=== PATIENT | female | born 1965 | race American Indian/Alaskan Native ===

== ENCOUNTER 2017-10-29 19:22 | Emergency (ER) | payer OTHER ==
[2017-10-29 19:39] VITALS: BP 116/78
[2017-10-29] MEDS ORDERED: ULTRAM PO ONE (20:33)
[2017-10-29 20:44] LABS: Hematocrit 37.4 % (30.3-42.9); Hemoglobin 12.4 gm/dl (10.1-14.3); Mean Corpuscular HGB Conc 33 % (30-34); Mean Corpuscular Hemoglobin 33 pg (28-32); Mean Corpuscular Volume 99 fl (79-97); Platelet Count 286 K/mm3 (140-440); Red Blood Count 3.77 M/mm3 (3.65-5.03); Red Cell Distribution Width 13.8 % (13.2-15.2)
--- NOTE | 2017-10-29 20:50 | Emergency Department Report ---
ED General Adult HPI - General Chief complaint: Neuro Symptoms/Deficit Stated complaint: PAIN LEFT ARM,FEET Time Seen by Provider: 10/29/17 20:32 Source: patient Mode of arrival: Ambulatory Limitations: No Limitations - History of Present Illness Initial comments: Patient is a 52-year-old Afro[place]Citizen [place] female history of htn and obesity who presents for left forearm pain and numbness bilateral foot numbness patient denies diabetes or chest pain or shortness of breath low back pain headache no nausea vomiting patient remains amateur to baseline per patient no WALTERS or dizziness no 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 has history of carpal tunnel no history of diabetic neuropathy or other neuropathy however does advise history of chronic low back pain with frequent steroid injections last injection March which did result in temporary foot pain and numbness described as this episode for which an burning tingling relieved by rest and offloading Onset/Timin -: days(s) (is) Location: upper extremity, lower extremity Radiation: extremity Severity scale (0 -10): 5 Quality: burning, other (tingling) Improves with: rest Worsens with: movement, other (overuse prolong standing walking ) Associated Symptoms: denies: confusion, chest pain, cough, diaphoresis, fever/ chills, headaches, loss of appetite, malaise, nausea/vomiting, rash, seizure, shortness of breath, syncope, weakness Treatments Prior to Arrival: none - Related Data Home Medications Medication Instructions Recorded Confirmed Last Taken Simvastatin 20 mg PO DAILY 12/07/14 12/07/14 12/07/14 Previous Rx's Medication Instructions Recorded Last Taken Type Ibuprofen [Motrin] 800 mg PO Q8HR PRN #20 tablet 12/07/14 Unknown Rx Gabapentin [Neurontin] 100 mg PO Q8HR #90 capsule 10/29/17 Unknown Rx Naproxen [Naprosyn] 500 mg PO BID PRN #60 tablet 10/29/17 Unknown Rx Allergies Allergy/AdvReac Type Severity Reaction Status Date / Time codeine Allergy Swelling Verified 12/07/14 14:01 ED Review of Systems ROS: Stated complaint: PAIN LEFT ARM,FEET Other details as noted in HPI Constitutional: denies: chills, fever Eyes: denies: eye pain, eye discharge, vision change ENT: denies: ear pain, throat pain Respiratory: denies: cough, shortness of breath, wheezing Cardiovascular: denies: chest pain, palpitations Endocrine: no symptoms reported Gastrointestinal: denies: abdominal pain, nausea, diarrhea Genitourinary: denies: urgency, dysuria, discharge Musculoskeletal: arthralgia, myalgia Skin: denies: rash, lesions Neurological: numbness, paresthesias. denies: headache, weakness, confusion, vertigo Psychiatric: anxiety. denies: depression Hematological/Lymphatic: as per HPI ED Past Medical Hx - Past Medical History Hx Hypertension: Yes - Surgical History Hx Cholecystectomy: Yes Additional Surgical History: Tubaligation - Social History Smoking Status: Current Every Day Smoker Substance Use Type: Alcohol - Medications Home Medications: Home Medications Medication Instructions Recorded Confirmed Last Taken Type Ibuprofen [Motrin] 800 mg PO Q8HR PRN #20 tablet 12/07/14 Unknown Rx Simvastatin 20 mg PO DAILY 12/07/14 12/07/14 12/07/14 History Gabapentin [Neurontin] 100 mg PO Q8HR #90 capsule 10/29/17 Unknown Rx Naproxen [Naprosyn] 500 mg PO BID PRN #60 tablet 10/29/17 Unknown Rx ED Physical Exam - General Limitations: No Limitations General appearance: alert, in no apparent distress - Head Head exam: Present: atraumatic, normocephalic - Eye Eye exam: Present: normal appearance, PERRL, EOMI Pupils: Present: normal accommodation - ENT ENT exam: Present: mucous membranes moist - Neck Neck exam: Present: normal inspection, full ROM. Absent: meningismus, lymphadenopathy, thyromegaly - Respiratory Respiratory exam: Present: normal lung sounds bilaterally. Absent: respiratory distress, wheezes, stridor, chest wall tenderness - Cardiovascular Cardiovascular Exam: Present: regular rate, normal rhythm, normal heart sounds. Absent: systolic murmur, diastolic murmur, rubs, gallop - GI/Abdominal GI/Abdominal exam: Present: soft, normal bowel sounds. Absent: rebound, bruit, hernia - Rectal Rectal exam: Present: deferred - Extremities Exam Extremities exam: Present: tenderness (left lateral forearm ), normal capillary refill. 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 Absent: swelling, abrasion, laceration, ecchymosis, deformity , crepidus, dislocation, erythema, tenderness over anatomical snuff box, pain with axial thumb loading Hand Wrist exam: Present: normal inspection. Absent: full ROM, tenderness, swelling Neuro motor exam: Present: wrist extension intact, thumb opposition intact, thumb IP flexion intact, thumb adduction intact, fingers 2-5 abduction intact Neurosensory exam: Present: 2-point discrimination, radial nerve intact, ulnar nerve intact, median nerve intact Vascular: Present: normal capillary refill, radial pulse, brachial pulse, ulnar pulse. Absent: vascular compromise, Pallo, pulse deficit radial art, pulse deficit ulnar art, pulse deficit brachial art - Expanded Lower Extremity Exam Left Foot/Toe exam: Present: full ROM. Absent: normal inspection, tenderness, swelling, abrasion, laceration, ecchymosis, deformity, crepidus, dislocation, erythema, puncture wound, calcaneal tenderness, tenderness at base of 5th metatarsal, nail avulsion, subungual hematoma Neuro vascular tendon exam: Present: no vascular compromise. Absent: pulse deficit, abnormal cap refill, motor deficit, sensory deficit, tendon deficit, extremity cold to touch, pallor, abnormal 2-point discrimination, decreased fine /light touch, foot drop, significant pain with passive ROM of distal joint Gait: Positive: observed and normal Right Foot/Toe exam: Present: normal inspection, full ROM. Absent: tenderness, swelling, abrasion, laceration, ecchymosis, deformity, crepidus, dislocation, erythema, amputation, puncture wound, foreign body, calcaneal tenderness, tenderness at base of 5th metatarsal, nail avulsion, subungual hematoma Neuro vascular tendon exam: Present: no vascular compromise. Absent: pulse deficit, abnormal cap refill, motor deficit, sensory deficit, tendon deficit, extremity cold to touch, pallor, abnormal 2-point discrimination, decreased fine /light touch, foot drop, peroneal nerve deficit, significant pain with passive ROM of distal joint Gait: Positive: observed and normal - Back Exam Back exam: Present: normal inspection, paraspinal tenderness (bilat , pos straight leg raise bilat no ecchymosis no deformity no swelling no posterior vertebral point tenderness ). Absent: full ROM, tenderness, CVA tenderness (R) , CVA tenderness (L), muscle spasm, vertebral tenderness, rash noted - Neurological Exam Neurological exam: Present: alert, oriented X3, CN II-XII intact, normal gait. Absent: motor sensory deficit, reflexes normal - Expanded Neurological Exam Expanded Patient oriented to: Present: person, place, time Speech: Present: fluid speech Cranial nerves: EOM's Intact: Normal, Gag Reflex: Normal, Tongue Deviation: Normal, Nystagmus: Normal, Facial Sensation: Normal, Facial Palsy with Forehead Movement: Normal, Facial Palsy without Forehead Movement: Normal Cerebellar function: Finger to Nose: Normal, Heel to [place]: Normal, Romberg: Normal Upper motor neuron: Alex Neglect: Normal, Pronator Drift: Normal, Babinski Sign : Normal, Sensory Extinction: Normal Sensory exam: Upper Extremity Light Touch: Normal, Upper Extremity Pin Prick: Normal, Upper Extremity Temperature: Normal, UE 2 Point Discrimination: Normal, Lower Extremity Light Touch: Normal, Lower Extremity Pin Prick: Normal, Lower Extremity Temperature: Normal, LE 2 Point Discrimination: Normal Motor strength exam: RUE: 5, LUE: 5, RLE: 5, LLE: 5 DTR: bicep (R): 2+, bicep (L): 2+, tricep (R): 2+, tricep (L): 2+, knee (R): 2+ , knee (L): 2+, ankle (R): 2+, ankle (L): 2+ Best Eye Response ([place]): (4) open spontaneously Best Motor Response ([place]): (6) obeys commands Best Verbal Response ([place]): (5) oriented [place] Total: 15 - Psychiatric Psychiatric exam: Present: normal affect, normal mood - Skin Skin exam: Present: warm ED Course Vital Signs 10/29/17 10/29/17 19:37 20:37 Temperature 98.9 F Pulse Rate 86 Respiratory 18 16 Rate Blood Pressure 116/78 O2 Sat by Pulse 98 Oximetry ED Medical Decision Making - Lab Data Result diagrams: 10/29/17 20:16 10/29/17 20:16 - EKG Data EKG shows normal: sinus rhythm Rate: normal - EKG Data When compared to previous EKG there are: no significant change Interpretation: normal EKG 10/29/17 21:20 NSR NSTEMI - Medical Decision Making EKG is normal sinus rhythm no ST elevated RI R score 0 is no shortness of breath no nausea vomiting no back pain numbness and tingling resolved with rest and medications given in ED CBC CMP are normal This is an overuse injury left Forearm, bilateral foot pain tingling or chronic problem same last year and recurring patient is followed by or through her steroid injections plan start Neurontin and naproxen forearm exercises as directed and follow-up with PCP in 2 -3 days return to ED should symptoms change patient verbalizes understanding and agreement was signed will be DC'd home in stable condition at this time. Critical care attestation.: If time is entered above; I have spent that time in minutes in the direct care of this critically ill patient, excluding procedure time. ED Disposition Clinical Impression: Lower extremity pain, bilateral Tennis elbow Qualifiers: Laterality: left Qualified Code(s): M77.12 - Lateral epicondylitis, left elbow Disposition: DC-01 TO HOME OR SELFCARE Is pt being admited?: No Does the pt Need Aspirin: No Condition: Good Instructions: Arthralgia (ED), Tennis Elbow (ED) Prescriptions: Gabapentin [Neurontin] 100 mg PO Q8HR #90 capsule Naproxen [Naprosyn] 500 mg PO BID PRN #60 tablet PRN Reason: pain Referrals: PRIMARY CARE, [Primary Care Provider] - 3-5 Days Forms: Work/School Release Form(ED) Time of Disposition: 21:29
[2017-10-29 21:05] LABS: BUN/Creatinine Ratio 21; Blood Urea Nitrogen 15 mg/dL (7-17); Calcium 9.4 mg/dL (8.4-10.2); Hemolysis Index 13
== END 2017-10-29 21:50 | disposition home or self-care (01) ==
LOC: ED 19:22
DX: M77.12 Lateral epicondylitis, left elbow (principal); M79.662 Pain in left lower leg; M79.661 Pain in right lower leg; I10 Essential (primary) hypertension; F17.200 Nicotine dependence, unspecified, uncomplicated; Z98.51 Tubal ligation status; Z90.49 Acquired absence of other specified parts of digestive tract; Z88.5 Allergy status to narcotic agent; Z79.899 Other long term (current) drug therapy
CPT/HCPCS: 36415; 80048; 85027; 93005; 93010; 99283

== ENCOUNTER 2020-12-10 08:06 | Day surgery (SDC) | payer OTHER ==
[2020-12-10] MEDS ORDERED: HEPARIN/NS 5000 UNIT/500ML 1,000 ML IR ONE (08:36)
[2020-12-10 08:47] LABS: Basophils # (Auto) 0.1 K/mm3 (0.0-0.1); Basophils % (Auto) 1.3 % (0.0-1.8); Eosinophils # (Auto) 0.1 K/mm3 (0.0-0.4); Eosinophils % (Auto) 1.6 % (0.0-4.3); Hematocrit 36.5 % (30.3-42.9); Hemoglobin 12.8 gm/dl (10.1-14.3); Lymphocytes # (Auto) 2.5 K/mm3 (1.2-5.4); Lymphocytes % (Auto) 40.8 % (13.4-35.0); Mean Corpuscular HGB Conc 35 % (30-34); Mean Corpuscular Volume 96 fl (79-97); Monocytes # (Auto) 0.6 K/mm3 (0.0-0.8); Monocytes % (Auto) 9.6 % (0.0-7.3); Platelet Count 282 K/mm3 (140-440); Red Blood Count 3.81 M/mm3 (3.65-5.03); Red Cell Distribution Width 13.6 % (13.2-15.2)
[2020-12-10] MEDS ORDERED: SODIUM CHLORIDE 0.9% 500 ML 500 ML IV SCH (09:00)
[2020-12-10] MEDS ORDERED: ASPIRIN EC 325 MG TAB PO SCH (09:00)
[2020-12-10 09:01] LABS: Blood Urea Nitrogen 16 mg/dL (7-17); Calcium 9.6 mg/dL (8.4-10.2); Hemolysis Index 4
[2020-12-10 09:03] LABS: INR 1.1 (0.87-1.13)
[2020-12-10 09:07] LABS: BUN/Creatinine Ratio 27
[2020-12-10] MEDS: fentaNYL 100 MCG/2 ML INJ ONE ×2 (09:48→09:56)
[2020-12-10] MEDS: MIDAZOLAM 2 MG/2 ML INJ ONE ×2 (09:48→09:56)
[2020-12-10] MEDS: VERAPAMIL 5 MG/2 ML INJ ONE ×2 (09:49→10:00)
[2020-12-10] MEDS: LIDOCAINE (2%) 20 MG/1 ML VIAL 20 ML MDV INFILTRATI ONE ×2 (09:49→09:58)
[2020-12-10] MEDS: HEPARIN 10,000 UNITS/10 ML VIAL ONE ×2 (09:50→10:00)
--- NOTE | 2020-12-10 10:47 | Cardiac Catherization Report ---
DATE OF SERVICE: 12/10/2020 INDICATIONS: The patient is a 55-year-old female with a diagnosis of hypertension, hyperlipidemia, obesity. She is having atypical chest pain. Underwent stress nuclear imaging, which showed a normal left ventricular function. However, there is evidence of moderate ischemia in the distribution of the left anterior descending artery. Echocardiogram performed in the past showed normal left ventricular systolic function of 60-65%. Presently, cardiac catheterization being performed for evaluation of atypical chest pains with abnormal nuclear imaging. The patient is aware of the procedure and potential complications, and alternatives of therapy available. The patient is willing to proceed with cardiac catheterization. DESCRIPTION OF PROCEDURE: The patient is evaluated for moderate sedation and was felt to be a candidate for moderate sedation. Received IV Versed and fentanyl. Subsequently, she was prepared in the standard fashion. Right radial artery access was obtained using a 21-gauge arterial puncture needle. A 5-Congolese slender sheath was introduced. Received 5 mg of intra-arterial verapamil and 3000 units of intravenous heparin. Subsequently, using multipurpose catheter, angiograms of the right coronary artery were obtained in multiple views and a 5-Congolese TIG catheter was used for obtaining the angiograms of the left coronary artery in multiple views. I was not able to enter the left ventricle with the use of the above-mentioned catheters. Considering the patient has normal left ventricular systolic function, left ventriculogram was not performed. At the end of the procedure, catheter and sheath were removed. Good hemostasis was achieved with radial band. The patient was monitored throughout the procedure with pulse oximetry, EKG monitoring and hemodynamic monitoring. The patient tolerated the sedation well. The patient's sedation monitoring started at 9:56 a.m. and ended at 10:12 a.m. Following findings were noted. HEMODYNAMICS: 1. Aortic pressure 125/82. Left ventricle was not entered. Right coronary artery dominant vessel arises normally from right coronary cusp. Angiographically smooth and normal. 2. Left coronary artery arises normally from left coronary cusp. Left main, LAD and its branches and circumflex artery and its branches are tortuous, but angiographically smooth and normal. FINAL IMPRESSION: 1. Normal coronary anatomy angiographically with right coronary artery being dominant vessel. 2. Left ventriculogram was not performed. 3. Procedure was uncomplicated. No untoward complications were noted. Findings were explained to the patient in detail. We will continue risk factor modification. The patient will be monitored in the outpatient area for the next few hours and will be monitored for good hemostasis. TID: [id number] RECEIPT: [id number] LESLIE/SAGAR BOYD
[2020-12-10 12:12] VITALS: BP 106/72
--- NOTE | 2020-12-10 12:33 | Short Stay Summary ---
Short Stay Documentation Date of service: 12/10/20 - History H&P: obtained from office - Allergies and Medications Current Medications: Allergies codeine Allergy (Verified 12/07/14 14:01) Swelling Home Medications Medication Instructions Recorded Confirmed Last Taken Type Simvastatin 40 mg PO DAILY 12/07/14 12/07/14 12/09/20 History Gabapentin [Neurontin] 100 mg PO Q8HR #90 capsule 10/29/17 12/10/20 12/09/20 Rx 100 MG Naproxen [Naprosyn] 500 mg PO BID PRN #60 tablet 10/29/17 12/10/20 Unknown Rx Cholecalciferol (Vitamin D3) [Baby 9.2 ml IH DAILY 12/10/20 12/10/20 11/29/20 History Vitamin D3] Cyclobenzaprine HCl [Flexeril 5 MG 5 mg PO TID PRN 12/10/20 12/10/20 12/09/20 History TAB] 5 MG Folic Acid [Folvite] 1 mg PO DAILY 12/10/20 12/10/20 12/09/20 History 1 MG Losartan [Cozaar] 50 mg PO DAILY 12/10/20 12/10/20 12/09/20 History 50 MG Meloxicam [Mobic] 7.5 mg PO DAILY PRN 12/10/20 12/10/20 12/09/20 History 7.5 MG Metoprolol [Lopressor TAB] 25 mg PO DAILY 12/10/20 12/10/20 12/09/20 History 50 MG hydroCHLOROthiazide 12.5 mg PO DAILY 12/10/20 12/10/20 12/09/20 History [Hydrochlorothiazide] 12.5 Active Medications Aspirin (Aspirin Ec 325 Mg Tab) 325 mg PO ONCE@0900 TANISHA Stop: 12/10/20 17:00 Last Admin: 12/10/20 09:00 Dose: 325 mg Documented by: Sodium Chloride (Nacl 0.9% 500 Ml) 500 mls @ 50 mls/hr IV DIRECT TANISHA Stop: 12/10/20 18:59 Last Admin: 12/10/20 09:30 Dose: 50 mls/hr Documented by: - Physical exam Integumentary: other (dressing clean dry intact no bleeding or hematoma) - Brief post op/procedure progress note Date of procedure: 12/10/20 Pre-op diagnosis: abnormal stress Post-op diagnosis: other (normal coronaries) Anesthesia: local Estimated blood loss: minimal - Disposition Condition at discharge: Good Disposition: 01 HOME / SELF CARE / HOMELESS Short Stay Discharge Plan Activity: advance as tolerated Diet: low fat, low cholesterol, low salt Wound: keep clean and dry, per your surgeon's advice Additional Instructions: Patinet should follow with Dr. Irby in 1-2 weeks. Follow up with: HERI HURT MD [Staff Physician] - 7 Days Forms: CardCath PCI D/C Instructions
--- NOTE | 2020-12-13 14:46 | Electrocardiograph Report ---
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
== END 2020-12-10 12:50 | disposition home or self-care (01) ==
LOC: CATHLABREC 08:06
PROVIDERS: ATTEND Internal Medicine
DX: R94.39 Abnormal result of other cardiovascular function study (principal); R07.9 Chest pain, unspecified; I25.10 Atherosclerotic heart disease of native coronary artery without angina pectoris; E78.00 Pure hypercholesterolemia, unspecified; K21.9 Gastro-esophageal reflux disease without esophagitis; M19.90 Unspecified osteoarthritis, unspecified site; Z98.51 Tubal ligation status; Z90.710 Acquired absence of both cervix and uterus; Z98.890 Other specified postprocedural states; Z79.899 Other long term (current) drug therapy; Z88.5 Allergy status to narcotic agent
CPT/HCPCS: 36415; 80048; 85025; 85610; 85730; 93005; 93454; 99156; C1887; C1894; J1644; J2250; J3010; J7040; 93458; Q9967